=== PATIENT | female | born 1985 | race African-American/Black ===

== ENCOUNTER → 2017-06-29 | Outpatient (CLI) | payer OTHER | END | disposition home or self-care (01) | LOC: RAD 11:53 | DX: M94.0 Chondrocostal junction syndrome [Tietze] (principal); M54.2 Cervicalgia | CPT/HCPCS: 71046; 72040 ==

== ENCOUNTER → 2019-11-28 | Outpatient (CLI) | payer OTHER ==
--- NOTE | 2019-11-28 13:47 | KCIC ---
EXAM: PA, oblique and lateral views left wrist DATE: 11/28/2019 12:00 AM INDICATION: Reason: LT WRIST PAIN INTERMITTENT 1 YR INCREASING PAST 3 WEEKS, NO INJURY / Spl. Instructions: / History: COMPARISON: No Prior FINDINGS: No evidence of acute fracture or dislocation. Joint spaces are preserved without significant degenerative/proliferative change. No abnormal scapholunate widening. Mild dorsal soft tissue swelling. IMPRESSION: No evidence of acute fracture or dislocation. Electronically signed by: Allen Preston MD (11/28/2019 1:44 PM) [id number]
--- NOTE | 2019-11-28 17:32 | KCIC ---
Examination: ANKLE RIGHT 3V History: Reason: ACUTE RT ANKLE PAIN/SWELLING 1 WEEK, NO INJURY / Spl. Instructions: / History: Comparison/Correlation: None Findings: Total 3 images of the right ankle were obtained. Small calcaneal spur noted. Minimal spurring of the medial malleolus. No acute fracture or bone destruction. Soft tissues are unremarkable. Joint spaces are unremarkable. Impression: No suspicious process. Electronically signed by: Ancelmo Perez MD (11/28/2019 5:29 PM) [id number]
== END | disposition home or self-care (01) ==
LOC: KCIC 12:40
PROVIDERS: ATTEND Family Medicine
DX: M25.571 Pain in right ankle and joints of right foot (principal); M25.532 Pain in left wrist; M77.31 Calcaneal spur, right foot; M79.89 Other specified soft tissue disorders
CPT/HCPCS: 73110; 73610